=== PATIENT | female | born 1975 | race Two or more races ===

== ENCOUNTER 2019-12-22 18:15 | Emergency (ER) | payer MEDICAID ==
[~2019-12-22] VITALS: Ht 152.4 cm; Wt 59.0 kg
[2019-12-22 18:16] VITALS: BP 112/61
== END 2019-12-22 20:39 | disposition left against medical advice (07) ==
LOC: ER 18:15
DX: Z53.21 Procedure and treatment not carried out due to patient leaving prior to being seen by health care provider (principal)